=== PATIENT | female | born 1960 | race Caucasian/White ===

== ENCOUNTER 2021-09-23 12:21 | Emergency (ER) | payer MEDICAID ==
[~2021-09-23] VITALS: Ht 162.6 cm; Wt 56.8 kg
[2021-09-23 12:37] VITALS: TEMP 98.5
[2021-09-23 12:44] LABS: COLLECTION METHOD CLEAN CATCH
[2021-09-23 12:55] LABS: MUCOUS Present (NOT PRESENT); SQUAMOUS EPITHELIAL 0-2 /hpf (0-10); URINE BACTERIA Rare /hpf (NONE SEEN)
[2021-09-23 12:56] LABS: PH 6 (5-8); URINE APPEARANCE Clear (CLEAR/HAZY); URINE COLOR Yellow (YELLOW); URINE GLUCOSE Negative (NEGATIVE); URINE KETONE Trace (NEGATIVE); URINE PROTEIN(semi-quant) 1+ (NEGATIVE)
[2021-09-23 12:57] LABS: URINE BILIRUBIN Negative (NEGATIVE); URINE BLOOD Negative (NEGATIVE); URINE LEUKOCYTE ESTERASE Trace (NEGATIVE); URINE NITRATE Negative (NEGATIVE); URINE UROBILINOGEN Negative (NEGATIVE)
[2021-09-23 13:11] LABS: BASO # 0.1 K/mm3 (0.0-0.2); EOS % 0.4 % (0.0-4.0); GRAN # 5.1 K/mm3 (1.4-6.5); GRAN % 76.2 % (42.2-75.2); HEMATOCRIT 43.5 % (37.0-47.0); HEMOGLOBIN 15.2 g/dl (12.5-16.0); LYMPH # 1.1 K/mm3 (1.2-3.4); LYMPH % 15.7 % (20.0-51.0); MEAN CELL VOLUME 92 fl (80.0-100.0); MEAN CORPUSCULAR HEMOGLOBIN 32 pg (27-31); MEAN CORPUSCULAR HGB CONC 35 g/dl (33.0-37.0); MEAN PLATELET VOLUME 7.6 fl (7.4-10.4); MONO # 0.4 K/mm3 (0.1-0.6); MONO % 6.1 % (1.7-9.3); PLATELET COUNT 221 K/mm3 (130-400); RED BLOOD COUNT 4.72 M/mm3 (4.10-5.30); REDCELL DISTRIBUTION WIDTH-CV 13.5 % (11.5-14.5)
[2021-09-23 13:32] LABS: ALBUMIN 4.1 gm/dL (3.4-4.8); BILIRUBIN,TOTAL 0.6 mg/dL (0.2-1.2); C-REACTIVE PROTEIN 0.07 mg/dL (0.00-0.50); CALCIUM 8.6 mg/dL (8.4-10.2); CREATININE, serum 0.63 mg/dL (0.57-1.11); POTASSIUM 3.4 mmol/L (3.5-4.5); TOTAL PROTEIN 6.9 gm/dL (6.2-8.1)
[2021-09-23 18:55] VITALS: BP 120/61; PULSE 80
== END 2021-09-23 19:05 | disposition home or self-care (01) ==
LOC: COL.ER 12:21
PROVIDERS: Family Medicine
DX: R20.2 Paresthesia of skin (principal); F10.20 Alcohol dependence, uncomplicated; R11.10 Vomiting, unspecified
CPT/HCPCS: J2405; J7030; Q9967